=== PATIENT | female | born 1970 | race African-American/Black ===

== ENCOUNTER → 2017-07-29 17:01 | Outpatient (CLI) | payer BC | END | disposition home or self-care (01) | LOC: D.MAMMO 05-01 09:45 | DX: Z12.31 Encounter for screening mammogram for malignant neoplasm of breast (principal) ==

== ENCOUNTER → 2017-12-09 11:26 | Outpatient (CLI) | payer BC | END | disposition home or self-care (01) | LOC: D.US 11:26 | DX: R22.42 Localized swelling, mass and lump, left lower limb (principal) ==

== ENCOUNTER 2020-12-02 09:45 | Outpatient (CLI) | payer BC | END 2020-12-02 10:15 | disposition home or self-care (01) | LOC: D.MAMMO 09:45 | PROVIDERS: ATTEND Family Medicine | DX: Z12.31 Encounter for screening mammogram for malignant neoplasm of breast (principal) ==